=== PATIENT | male | born 1950 | race Caucasian/White ===

== ENCOUNTER 2016-08-18 14:53 | Emergency (ER) | payer OTHER, MEDICARE ==
[~2016-08-18] VITALS: Ht 170.2 cm; Wt 91.8 kg
[~2016-08-18 14:53] MED LIST: AMLO2.5T PO; ASPI81 PO; CLOP75 PO; METO50TA11 PO; NITR.4 SL; OMEP20TA PO; PRAV40TA2 PO; TYLE3 PO
[2016-08-18 15:16] VITALS: BP 122/70; PULSE 75; RESP 16; TEMP 99.1; O2SAT 96
[2016-08-18 15:30] VITALS: BP 138/63; PULSE 68; RESP 14; O2SAT 97
[2016-08-18] MEDS ORDERED: PRAV80TA2 PO (15:37)
[2016-08-18] MEDS ORDERED: LOSA25TA PO (15:37)
[2016-08-18] MEDS ORDERED: AZIT250T3 PO (15:37)
[2016-08-18] MEDS ORDERED: OMEP20TA PO (15:37)
[2016-08-18] MEDS ORDERED: ASPI1TAB69 PO (15:37)
[2016-08-18] MEDS ORDERED: METO50TA PO (15:37)
[2016-08-18] MEDS ORDERED: PLAV75TA29 PO (15:37)
[2016-08-18 16:06] VITALS: O2SAT 97
--- NOTE | 2016-08-18 16:11 | PD ---
HPI Chief Complaint: Dizziness Time Seen by Provider: 15:56 Travel History International Travel<30 days: No Contact w/Intl Traveler<30days: No Traveled to known affect area: No History of Present Illness HPI 66 years old male complains of headache, coughing congestion, shortness of breath, fever chills, dizziness and generalized malaise and weakness. Patient states that the symptoms started 10 days ago and got progressively worse since then. Patient has sick contact recently. Patient denies any dysuria or frequency. Patient denies any back pain. Patient states that headache mild aching headache diffuse over the head. Patient denies any visual change. Patient denies any neck pain. Patient states that he had chest wall pain occasionally with coughing. Patient denies abdominal pain. PFSH Past Medical History Hx Anticoagulant Therapy: Yes Arthritis: Yes Blood Disorders: No Heart Rhythm Problems: No Cancer: No Cardiac Catheterization: Yes (X 3) Cardiovascular Problems: Yes (htn on meds, stents, 5 vessel bypass) High Cholesterol: Yes Chemotherapy: No Chest Pain: Yes Congestive Heart Failure: No COPD: No Coronary Artery Disease: Yes Diabetes: No Diminished Hearing: No Endocrine: No Gastrointestinal Disorders: No Genitourinary: No Hypertension: Yes Immune Disorder: No Musculoskeletal: Yes (CARPAL TUNNEL, SHOULDER,RIGHT KNEE SURGERY) Neurologic: No Psychiatric: No Reproductive: No Respiratory: Yes (h/o bronchitis) Immunizations Current: Yes Myocardial Infarction: No Thyroid Disease: No Tetanus Vaccination: > 5 Years Influenza Vaccination: Yes Past Surgical History Cardiac Surgery: Yes (BYPASS 2001 ,3 CARDIAC CATHS) Coronary Artery Bypass Graft: Yes (5 vessel) Other Surgery: Yes Social History Alcohol Use: No Tobacco Use: No Substance Use: No Allergies-Medications (Allergen,Severity, Reaction): Coded Allergies: Codeine (Verified Allergy, Severe, 08/18/16) STATES IS NO ALLERGY AT THIS TIME Reported Meds & Prescriptions Reported Meds & Active Scripts Active Reported Azithromycin 250 Mg Tab 250 Mg PO DIRECTED Take 2 tabs (500 mg) on day 1 then 1 tab daily x 4 days. Aspirin 81 Mg Tabdr 81 Mg PO DAILY Pravastatin 80 Mg Tab 80 Mg PO DAILY Omeprazole 20 Mg Tab 20 Mg PO BID Metoprolol Tartrate 50 Mg Tab 50 Mg PO BID Losartan (Losartan Potassium) 25 Mg Tab 12.5 Mg PO DAILY Plavix (Clopidogrel Bisulfate) 75 Mg Tab 75 Mg PO DAILY Review of Systems General / Constitutional: No: Fever Eyes: No: Visual changes HENT: Positive: Headaches Cardiovascular: No: Chest Pain or Discomfort Respiratory: Positive: Cough, Shortness of Breath Gastrointestinal: No: Abdominal Pain Genitourinary: No: Dysuria Musculoskeletal: No: Pain Skin: No Rash Neurologic: No: Weakness Psychiatric: No: Depression Endocrine: No: Polydipsia Hematologic/Lymphatic: No: Easy Bruising Physical Exam Narrative GENERAL: Well-nourished, well-developed patient. SKIN: Warm and dry. HEAD: Normocephalic. EYES: No scleral icterus. No injection or drainage. Throat: Mild erythematous. NECK: Supple, trachea midline. No JVD or lymphadenopathy. No meningismus CARDIOVASCULAR: Regular rate and rhythm without murmurs, gallops, or rubs. RESPIRATORY: Breath sounds equal bilaterally. No accessory muscle use. GASTROINTESTINAL: Abdomen soft, non-tender, nondistended. MUSCULOSKELETAL: No cyanosis, or edema. BACK: Nontender without obvious deformity. No CVA tenderness. Neurologic exam normal. Data Data Last Documented VS Vital Signs Date Time Temp Pulse Resp B/P Pulse Ox O2 Delivery O2 Flow Rate FiO2 08/18/16 17:25 55 18 138/63 95 Room Air 08/18/16 15:16 99.1 Orders Complete Blood Count With Diff (08/18/16 16:03) Comprehensive Metabolic Panel (08/18/16 16:03) Blood Culture (08/18/16 16:03) Urinalysis - C+S If Indicated (08/18/16 16:03) Influenzae A/B Antigen (08/18/16 16:03) Chest, Single Ap (08/18/16 16:03) Iv Access Insert/Monitor (08/18/16 16:03) Ecg Monitoring (08/18/16 16:03) Oximetry (08/18/16 16:03) Sodium Chlor 0.9% 1000 Ml Inj (Ns 1000 M (08/18/16 17:00) Ondansetron Inj (Zofran Inj) (08/18/16 17:00) Azithromycin (Zithromax) (08/19/16 09:00) Labs Laboratory Tests Test 08/18/16 08/18/16 16:10 17:12 White Blood Count 8.7 TH/MM3 Red Blood Count 4.64 MIL/MM3 Hemoglobin 12.9 GM/DL Hematocrit 39.1 % Mean Corpuscular Volume 84.2 FL Mean Corpuscular Hemoglobin 27.9 PG Mean Corpuscular Hemoglobin 33.1 % Concent Red Cell Distribution Width 14.3 % Platelet Count 200 TH/MM3 Mean Platelet Volume 7.3 FL Neutrophils (%) (Auto) 65.1 % Lymphocytes (%) (Auto) 20.6 % Monocytes (%) (Auto) 10.6 % Eosinophils (%) (Auto) 2.9 % Basophils (%) (Auto) 0.8 % Neutrophils # (Auto) 5.6 TH/MM3 Lymphocytes # (Auto) 1.8 TH/MM3 Monocytes # (Auto) 0.9 TH/MM3 Eosinophils # (Auto) 0.3 TH/MM3 Basophils # (Auto) 0.1 TH/MM3 CBC Comment DIFF FINAL Differential Comment Sodium Level 144 MEQ/L Potassium Level 3.7 MEQ/L Chloride Level 108 MEQ/L Carbon Dioxide Level 26.7 MEQ/L Anion Gap 9 MEQ/L Blood Urea Nitrogen 12 MG/DL Creatinine 1.40 MG/DL Estimat Glomerular Filtration 51 ML/MIN Rate Random Glucose 99 MG/DL Calcium Level 8.7 MG/DL Total Bilirubin 0.4 MG/DL Aspartate Amino Transf 27 U/L (AST/SGOT) Alanine Aminotransferase 40 U/L (ALT/SGPT) Alkaline Phosphatase 76 U/L Total Protein 7.1 GM/DL Albumin 3.1 GM/DL Urine Collection Type CLEAN CATCH Urine Color YELLOW Urine Turbidity CLEAR Urine pH 5.5 Urine Specific Bryson 1.033 Urine Protein TRACE mg/dL Urine Glucose (UA) NEG mg/dL Urine Ketones TRACE mg/dL Urine Occult Blood NEG Urine Nitrite NEG Urine Bilirubin NEG Urine Leukocyte Esterase NEG Urine Squamous Epithelial 0-5 /hpf Cells Urine Amorphous Sediment FEW Microscopic Urinalysis Comment CULT NOT INDICATED Urine Collection Time 1712 MDM Medical Decision Making Medical Screen Exam Complete: Yes Emergency Medical Condition: Yes Differential Diagnosis Differential diagnosis including viral syndrome, bronchitis, pneumonia, dehydration, electrolyte imbalance, sepsis. Narrative Course 66 years old male with headache fever chills coughing congestion dizziness shortness of breath and generalized malaise and weakness. Normal saline solution 1 L IV bolus. Zofran 4 mg IV. Zithromax 500 mg by mouth given. Diagnosis Primary Impression: Bronchitis Additional Impression: Viral syndrome Patient Instructions: General Instructions Additional Instructions: Uli-Keaton tyson directed. Tylenol or Motrin for aching pain, headache. Encouraged by mouth fluid. Follow-up with personal physician. Return if persistent problem or worse. Med/Other Pt SpecificInfo: Prescription(s) given Scripts Azithromycin (Zithromax Z-Keaton)250 Mg Toca275 Mg PO DIRECTED #1 DSPK 500 MG (2 tabs) day 1, then 1 tab days 2-5. Prov:Sahil Ramirez MD 08/18/16 Disposition: 01 DISCHARGE HOME Condition: Stable Sahil Ramirez MD Aug 18, 2016 16:11
[2016-08-18 16:27] LABS: AUTOMATED NEUTROPHIL # 5.6 TH/MM3 (1.8-7.7); BASOPHIL # 0.1 TH/MM3 (0-0.2); BASOPHIL % 0.8 % (0.0-2.0); EOSINOPHIL # 0.3 TH/MM3 (0-0.4); EOSINOPHIL % 2.9 % (0.0-4.0); HEMATOCRIT 39.1 % (39.0-51.0); HEMO FLAGS DIFF FINAL; LYMPH % 20.6 % (9.0-44.0); LYMPHOCYTE # 1.8 TH/MM3 (1.0-4.8); MEAN CELL VOLUME 84.2 FL (80.0-100.0); MEAN CORPUSCULAR HEMOGLOBIN 27.9 PG (27.0-34.0); MEAN CORPUSCULAR HGB CONC 33.1 % (32.0-36.0); MONO % 10.6 % (0.0-8.0); NEUT % 65.1 % (16.0-70.0); PLATELET COUNT 200 TH/MM3 (150-450); RED BLOOD COUNT 4.64 MIL/MM3 (4.50-5.90); RED CELL DISTRIBUTION WIDTH 14.3 % (11.6-17.2); WHITE BLOOD COUNT 8.7 TH/MM3 (4.0-11.0)
[2016-08-18 16:36] LABS: CHLORIDE 108 MEQ/L (98-107); POTASSIUM 3.7 MEQ/L (3.5-5.1); SODIUM (NA) 144 MEQ/L (136-145)
[2016-08-18 16:40] LABS: ANION GAP 9 MEQ/L (5-15); BICARBONATE 26.7 MEQ/L (21.0-32.0); BLOOD UREA NITROGEN 12 MG/DL (7-18)
--- NOTE | 2016-08-18 16:42 | RADHPO ---
EXAM DATE/TIME: 08/18/2016 16:25 [facility] COMPARISON: CHEST SINGLE AP, October 08, 2015, 15:25. INDICATIONS : Short of breath, cough, fever MEDICAL HISTORY : Cardiovascular disease. SURGICAL HISTORY : CABG. ENCOUNTER: Initial ACUITY: 1 week PAIN SCORE: 0/10 LOCATION: Bilateral chest FINDINGS: A single view of the chest demonstrates the lungs to be symmetrically aerated without evidence of mas s, infiltrate or effusion. The cardiomediastinal contours are unremarkable. Osseous structures are intact. The patient is status post median sternotomy for bypass grafting procedure. There are overlyi ng electrocardiogram leads. CONCLUSION: No acute disease. There is no evidence of pneumonia on this single view study. Kayode Francis MD on August 18, 2016 at 16:40 Board Certified Radiologist. This report was verified electronically.
[2016-08-18 16:43] LABS: ALT (GPT) 40 U/L (12-78); AST (GOT) 27 U/L (15-37); GLOMERULAR FILTRATION RATE 51 ML/MIN (>89)
[2016-08-18 16:44] LABS: TOTAL BILIRUBIN ADULT 0.4 MG/DL (0.2-1.0)
[2016-08-18 16:46] LABS: ALKALINE PHOSPHATASE 76 U/L (45-117)
[2016-08-18] MEDS ORDERED: ONDANSETRON HCL 4 MG/2 ML VIAL IV PUSH ONE (17:00)
[2016-08-18] MEDS ORDERED: SODIUM CHLOR 0.9% 1000 ML INJ 1,000 ML IV ONE (17:00)
[2016-08-18 17:25] VITALS: BP 138/63; PULSE 55; RESP 18; O2SAT 95
[2016-08-18 17:27] LABS: BLOOD, URINE NEG (NEG); GLUCOSE,URINE NEG (NEG); KETONE, URINE TRACE mg/dL (NEG); NITRITE,URINE NEG (NEG); PH, URINE 5.5 (5.0-8.5)
[2016-08-18 17:29] LABS: METHOD OF COLLECTION CLEAN CATCH; URINE COLOR YELLOW (YELLW/STRAW)
[2016-08-18 17:34] LABS: COMMENT (UR) CULT NOT INDICATED; COMMENT2 (UR) MUCOUS PRESENT; CULTURE IF INDICATED CULT NOT INDICATED; SQUAMOUS EPITHELIAL CELL URINE 0-5 /hpf (0-5)
[2016-08-18] MEDS ORDERED: ZITHTAB PO (17:44)
[2016-08-18] MEDS ORDERED: AZITHROMYCIN 250 MG TAB PO ONE (18:00)
[2016-08-19] MEDS ORDERED: AZITHROMYCIN 250 MG TAB PO SCH (09:00)
--- NOTE | 2016-08-19 15:01 | EKG ---
Date Performed: 08/18/2016 Time Performed: 15:26:38 PTAGE: 66 years EKG: Sinus rhythm Normal ECG PREVIOUS TRACING : 10/10/2015 03.13 Compared to prior tracing no significant change DOCTOR: Stanley Irwin Interpretating Date/Time 08/19/2016 14:59:22
== END 2016-08-18 18:03 | disposition home or self-care (01) ==
LOC: PHED 14:53
DX: J40 Bronchitis, not specified as acute or chronic (principal); B34.9 Viral infection, unspecified; R51 Headache; R50.9 Fever, unspecified; R42 Dizziness and giddiness; R53.81 Other malaise; R53.1 Weakness; I10 Essential (primary) hypertension; E78.00 Pure hypercholesterolemia, unspecified; Z79.01 Long term (current) use of anticoagulants; Z87.39 Personal history of other diseases of the musculoskeletal system and connective tissue; Z86.79 Personal history of other diseases of the circulatory system; Z87.09 Personal history of other diseases of the respiratory system
CPT/HCPCS: 71010; 80053; 81001; 85025; 87040; 87804; 93005; 96361; 96374; 99284; J2405; J7030

== ENCOUNTER 2016-08-26 09:02 | Emergency (ER) | payer OTHER, MEDICARE ==
[~2016-08-26] VITALS: Ht 170.2 cm; Wt 90.1 kg
[~2016-08-26 09:02] MED LIST changes: -AMLO2.5T PO; +ASPI1TAB69 PO; -ASPI81 PO; +AZIT250T3 PO; -CLOP75 PO; +LOSA25TA PO; +METO50TA PO; -METO50TA11 PO; -NITR.4 SL; +PLAV75TA29 PO; -PRAV40TA2 PO; +PRAV80TA2 PO; -TYLE3 PO; +ZITHTAB PO
[2016-08-26 09:06] VITALS: BP 148/82; PULSE 59; RESP 17; TEMP 97.9; O2SAT 97
--- NOTE | 2016-08-26 09:29 | PD ---
HPI Chief Complaint: Cold / Flu Symptoms Time Seen by Provider: 09:11 Travel History International Travel<30 days: No Contact w/Intl Traveler<30days: No Traveled to known affect area: No History of Present Illness HPI Patient is 66-year-old male presents emergency department for his third evaluation in the past 2 weeks for cough and congestion and shortness of breath. Patient states he's been seen here diagnosed with bronchitis and was placed on antibiotics, he went to the [place] as well was placed on the same course of antibiotics and discharged both times the diagnosis of bronchitis. Patient states he still continues to not feel well shortness of breath with some modest exertion. Also with a dry cough denies any fevers. States she's had 2 chest x- rays and this time as well as some blood work. Denies history of stasis a history of blood clots in his legs or in his chest. Denies any orthopnea symptoms. PFSH Past Medical History Hx Anticoagulant Therapy: Yes Arthritis: Yes Blood Disorders: No Heart Rhythm Problems: No Cancer: No Cardiac Catheterization: Yes (X 3) Cardiovascular Problems: Yes (htn on meds, stents, 5 vessel bypass) High Cholesterol: Yes Chemotherapy: No Chest Pain: Yes Congestive Heart Failure: No COPD: No Coronary Artery Disease: Yes Diabetes: No Diminished Hearing: No Endocrine: No Gastrointestinal Disorders: No Genitourinary: No Hypertension: Yes Immune Disorder: No Musculoskeletal: Yes (CARPAL TUNNEL, SHOULDER,RIGHT KNEE SURGERY) Neurologic: No Psychiatric: No Reproductive: No Respiratory: Yes (h/o bronchitis) Immunizations Current: Yes Myocardial Infarction: No Thyroid Disease: No Tetanus Vaccination: > 5 Years Influenza Vaccination: Yes Past Surgical History Cardiac Surgery: Yes (BYPASS 2001 ,3 CARDIAC CATHS) Coronary Artery Bypass Graft: Yes (5 vessel) Other Surgery: Yes Social History Alcohol Use: No Tobacco Use: No Substance Use: No Allergies-Medications (Allergen,Severity, Reaction): Coded Allergies: Codeine (Verified Allergy, Severe, 08/26/16) STATES IS NO ALLERGY AT THIS TIME Reported Meds & Prescriptions Reported Meds & Active Scripts Active Reported Aspirin 81 Mg Tabdr 81 Mg PO DAILY Pravastatin 80 Mg Tab 80 Mg PO DAILY Omeprazole 20 Mg Tab 20 Mg PO BID Metoprolol Tartrate 50 Mg Tab 50 Mg PO BID Losartan (Losartan Potassium) 25 Mg Tab 12.5 Mg PO DAILY Plavix (Clopidogrel Bisulfate) 75 Mg Tab 75 Mg PO DAILY Review of Systems Except as stated in HPI: all other systems reviewed are Neg Physical Exam Narrative GENERAL: Well-developed well-nourished, was seen by me emulating to the exam room in no apparent distress and smiling. SKIN: Focused skin assessment warm/dry. HEAD: Atraumatic. Normocephalic. EYES: Pupils equal and round. No scleral icterus. No injection or drainage. ENT: No nasal bleeding or discharge. Mucous membranes pink and moist. NECK: Trachea midline. No JVD. CARDIOVASCULAR: Regular rate and rhythm. No murmur appreciated. RESPIRATORY: No accessory muscle use. Clear to auscultation. Breath sounds equal bilaterally. GASTROINTESTINAL: Abdomen soft, non-tender, nondistended. Hepatic and splenic margins not palpable. MUSCULOSKELETAL: No obvious deformities. No clubbing. No cyanosis. No edema. NEUROLOGICAL: Awake and alert. No obvious cranial nerve deficits. Motor grossly within normal limits. Normal speech. PSYCHIATRIC: Appropriate mood and affect; insight and judgment normal. Data Data Last Documented VS Vital Signs Date Time Temp Pulse Resp B/P Pulse Ox O2 Delivery O2 Flow Rate FiO2 08/26/16 12:17 61 16 141/78 97 08/26/16 11:20 Room Air 08/26/16 09:06 97.9 Orders Electrocardiogram (08/26/16 09:29) Complete Blood Count With Diff (08/26/16 09:29) Comprehensive Metabolic Panel (08/26/16 09:29) D-Dimer (08/26/16 09:29) Prothrombin Time / Inr (Pt) (08/26/16 09:29) Act Partial Throm Time (Ptt) (08/26/16 09:29) Troponin I (08/26/16 09:29) Ecg Monitoring (08/26/16 09:29) Iv Access Insert/Monitor (08/26/16 09:29) Oximetry (08/26/16 09:29) Sodium Chloride 0.9% Flush (Ns Flush) (08/26/16 09:30) Ct Pulmonary Angiogram (08/26/16 ) Iohexol 350 Inj (Omnipaque 350 Inj) (08/26/16 11:23) Labs Laboratory Tests Test 08/26/16 09:50 White Blood Count 6.5 TH/MM3 Red Blood Count 4.71 MIL/MM3 Hemoglobin 13.3 GM/DL Hematocrit 39.8 % Mean Corpuscular Volume 84.5 FL Mean Corpuscular Hemoglobin 28.1 PG Mean Corpuscular Hemoglobin 33.3 % Concent Red Cell Distribution Width 14.1 % Platelet Count 232 TH/MM3 Mean Platelet Volume 7.2 FL Neutrophils (%) (Auto) 52.5 % Lymphocytes (%) (Auto) 32.2 % Monocytes (%) (Auto) 9.6 % Eosinophils (%) (Auto) 4.5 % Basophils (%) (Auto) 1.2 % Neutrophils # (Auto) 3.4 TH/MM3 Lymphocytes # (Auto) 2.1 TH/MM3 Monocytes # (Auto) 0.6 TH/MM3 Eosinophils # (Auto) 0.3 TH/MM3 Basophils # (Auto) 0.1 TH/MM3 CBC Comment DIFF FINAL Differential Comment Prothrombin Time 11.1 SEC Prothromb Time International 1.0 RATIO Ratio Activated Partial 26.5 SEC Thromboplast Time D-Dimer Quantitative (PE/DVT) 0.70 MG/L FEU Sodium Level 146 MEQ/L Potassium Level 3.9 MEQ/L Chloride Level 111 MEQ/L Carbon Dioxide Level 26.1 MEQ/L Anion Gap 9 MEQ/L Blood Urea Nitrogen 18 MG/DL Creatinine 1.40 MG/DL Estimat Glomerular Filtration 51 ML/MIN Rate Random Glucose 89 MG/DL Calcium Level 9.2 MG/DL Total Bilirubin 0.4 MG/DL Aspartate Amino Transf 16 U/L (AST/SGOT) Alanine Aminotransferase 25 U/L (ALT/SGPT) Alkaline Phosphatase 62 U/L Troponin I LESS THAN 0.02 NG/ML Total Protein 7.2 GM/DL Albumin 3.4 GM/DL [facility] Medical Decision Making Medical Screen Exam Complete: Yes Emergency Medical Condition: Yes Interpretation(s) EKG shows sinus bradycardia rate of 56, normal axis and normal R-wave progression. No concerning ST-T changes. Intervals otherwise within normal limits. This is normal EKG except for rate. Comparison to 08/18/2016 shows no change comparison to 10/10/2015 shows no change. Differential Diagnosis PE seems unlikely, ACS is highly unlikely, shortness of breath, CHF, bronchitis , pneumonia. Narrative Course Patient is roomed in emergency department, on arrival he is walking in the hallway smiling in no apparent distress. He appears well. Initial workup was significant for minimally elevated d-dimer to 0.7. CTA is negative. Creatinine is 1.4 which appears to be patient's baseline. Last [address] Angiography 08/26/16 0000 Signed Impressions: Service Date/Time: Friday, August 26, 2016 11:08 - CONCLUSION: 1. There is no evidence for central pulmonary emboli. 2. Extensive coronary artery calcifications with history of previous bypass. 3. Very minimal fissural thickening Ernesto Hadley MD FACR No indication for antibiotics at this time. Discussed with the patient at this point needs follow-up with his primary care physician and consideration of pulmonary function testing. Discussed symptomatically management home and return to ED criteria. He is stable for discharge. Diagnosis Primary Impression: Bronchitis Disposition: 01 DISCHARGE HOME Condition: Stable Marquis Santillan MD Aug 26, 2016 09:29
[2016-08-26] MEDS ORDERED: SODIUM CHLORIDE 0.9% FLUSH 10 ML FLUSH IVF PRN (09:30)
[2016-08-26 09:33] VITALS: RESP 16; O2SAT 100
[2016-08-26 09:59] LABS: AUTOMATED NEUTROPHIL # 3.4 TH/MM3 (1.8-7.7); BASOPHIL # 0.1 TH/MM3 (0-0.2); BASOPHIL % 1.2 % (0.0-2.0); EOSINOPHIL # 0.3 TH/MM3 (0-0.4); EOSINOPHIL % 4.5 % (0.0-4.0); HEMATOCRIT 39.8 % (39.0-51.0); HEMO FLAGS DIFF FINAL; LYMPH % 32.2 % (9.0-44.0); LYMPHOCYTE # 2.1 TH/MM3 (1.0-4.8); MEAN CELL VOLUME 84.5 FL (80.0-100.0); MEAN CORPUSCULAR HEMOGLOBIN 28.1 PG (27.0-34.0); MEAN CORPUSCULAR HGB CONC 33.3 % (32.0-36.0); MONO % 9.6 % (0.0-8.0); NEUT % 52.5 % (16.0-70.0); PLATELET COUNT 232 TH/MM3 (150-450); RED BLOOD COUNT 4.71 MIL/MM3 (4.50-5.90); RED CELL DISTRIBUTION WIDTH 14.1 % (11.6-17.2); WHITE BLOOD COUNT 6.5 TH/MM3 (4.0-11.0)
[2016-08-26 10:00] VITALS: BP 149/84; PULSE 60; RESP 16; O2SAT 97
[2016-08-26 10:07] LABS: CHLORIDE 111 MEQ/L (98-107); POTASSIUM 3.9 MEQ/L (3.5-5.1); SODIUM (NA) 146 MEQ/L (136-145)
[2016-08-26 10:10] LABS: ANION GAP 9 MEQ/L (5-15); BICARBONATE 26.1 MEQ/L (21.0-32.0); BLOOD UREA NITROGEN 18 MG/DL (7-18)
[2016-08-26 10:13] LABS: ALT (GPT) 25 U/L (12-78); AST (GOT) 16 U/L (15-37)
[2016-08-26 10:14] LABS: GLOMERULAR FILTRATION RATE 51 ML/MIN (>89)
[2016-08-26 10:15] LABS: TOTAL BILIRUBIN ADULT 0.4 MG/DL (0.2-1.0)
[2016-08-26 10:16] LABS: ALKALINE PHOSPHATASE 62 U/L (45-117)
[2016-08-26 10:17] LABS: APTT (PATIENT) 26.5 SEC (24.3-30.1); PROTHROMBIN TIME - PATIENT 11.1 SEC (9.8-11.6)
[2016-08-26] MEDS ORDERED: IOHEXOL 350 MG/ML 10 ML VIAL (for RAD DIAG) IV ONE (11:23)
--- NOTE | 2016-08-26 11:42 | RADHPO ---
EXAM DATE/TIME: 08/26/2016 11:08 [facility] COMPARISON: CT PULMONARY ANGIOGRAM, September 14, 2014, 6:27. INDICATIONS : Short of breath and cought for two weeks with no improvement. IV CONTRAST: 65 cc Omnipaque 350 (iohexol) IV RADIATION DOSE: 19.00 CTDIvol (mGy) MEDICAL HISTORY : Hypertension. Cardiovascular disease Anticoagulant therapy. SURGICAL HISTORY : CABG ENCOUNTER: Initial ACUITY: 2 weeks PAIN SCALE: 0/10 LOCATION: Bilateral chest TECHNIQUE: Volumetric scanning of the chest was performed using a pulmonary embolism protocol MIP images were re constructed. Using automated exposure control and adjustment of the mA and/or kV according to patien t size, radiation dose was kept as low as reasonably achievable to obtain optimal diagnostic quality images. FINDINGS: There is good visualization of the central pulmonary vessels. There is no evidence for central pulmo nary emboli. Very minimal bibasilar parenchymal changes are noted with minimal thickening about the fissure on the right. The heart is enlarged. There is no pericardial effusion. Extensive coronary artery calcifications a re seen in the LAD and the circumflex. Portion of liver and spleen identified are free of focal defects. CONCLUSION: 1. There is no evidence for central pulmonary emboli. 2. Extensive coronary artery calcifications with history of previous bypass. 3. Very minimal fissural thickening Ernesto Hadley MD FACR on August 26, 2016 at 11:29 Board Certified Radiologist. This report was verified electronically.
[2016-08-26 12:17] VITALS: BP 141/78
--- NOTE | 2016-08-27 22:18 | EKG ---
Date Performed: 08/26/2016 Time Performed: 09:32:20 PTAGE: 66 years EKG: Sinus bradycardia Since PREVIOUS TRACING , no significant change noted Normal ECG except for rate PREVIOUS TRACIN 08/18/2016 15.26 DOCTOR: Katey Griggs Interpretating Date/Time 08/27/2016 22:16:21
== END 2016-08-26 12:36 | disposition home or self-care (01) ==
LOC: PHED 09:02
DX: J40 Bronchitis, not specified as acute or chronic (principal)
CPT/HCPCS: 71275; 80053; 84484; 85025; 85379; 85610; 85730; 93005; 99284; Q9967

== ENCOUNTER 2017-01-23 15:21 | Emergency (ER) | payer OTHER, MEDICARE ==
[~2017-01-23] VITALS: Ht 170.2 cm; Wt 92.8 kg
[~2017-01-23 15:21] MED LIST changes: -AZIT250T3 PO; -ZITHTAB PO
[2017-01-23 16:02] VITALS: BP 98/56; PULSE 67; RESP 16; TEMP 100.1
[2017-01-23] MEDS ORDERED: ASPI81CH CHEW (16:23)
[2017-01-23] MEDS ORDERED: NITR1SUB3 SL (16:23)
[2017-01-23 16:24] VITALS: O2SAT 94
--- NOTE | 2017-01-23 16:24 | PD ---
HPI . Left arm pain and dyspnea Chief Complaint: Pain: Acute or Chronic Time Seen by Provider: 16:12 Travel History International Travel<30 days: No Contact w/Intl Traveler<30days: No Traveled to known affect area: No History of Present Illness HPI This patient is status post release of his left carpal tunnel on 01/21. He states that he awakened early this morning by increased pain in his arm. The pain has been unrelieved by tramadol. He is also complaining with dyspnea. He denies chest pain. He rates his pain 10/10. PFSH Past Medical History Hx Anticoagulant Therapy: Yes (plavix) Arthritis: Yes Blood Disorders: No Heart Rhythm Problems: No Cancer: No Cardiac Catheterization: Yes (X 3) Cardiovascular Problems: Yes (htn on meds, 5 vessel bypass) High Cholesterol: Yes Chemotherapy: No Chest Pain: Yes Congestive Heart Failure: No COPD: No Coronary Artery Disease: Yes Diabetes: No Diminished Hearing: No Endocrine: No Gastrointestinal Disorders: No Genitourinary: No Hypertension: Yes Immune Disorder: No Musculoskeletal: Yes (CARPAL TUNNEL, SHOULDER,RIGHT KNEE SURGERY) Neurologic: No Psychiatric: No Reproductive: No Respiratory: Yes (h/o bronchitis) Immunizations Current: Yes Myocardial Infarction: No Thyroid Disease: No Past Surgical History Cardiac Surgery: Yes (BYPASS 2001 ,3 CARDIAC CATHS) Coronary Artery Bypass Graft: Yes (5 vessel) Other Surgery: Yes Social History Alcohol Use: No Tobacco Use: No Substance Use: No Allergies-Medications (Allergen,Severity, Reaction): Coded Allergies: codeine (Unverified Allergy, Severe, 01/23/17) STATES IS NO ALLERGY AT THIS TIME Reported Meds & Prescriptions Reported Meds & Active Scripts Active Reported Aspirin 81 Mg Chew 81 Mg CHEW DAILY Nitroglycerin SL (Nitroglycerin) 0.4 Mg Subl 0.4 Mg SL DIRECTED PRN ONE TABLET UNDER THE TONGUE NEEDED FOR CHEST PAIN, MAY REPEAT EVERY FIVE MINUTES FOR A TOTAL OF 3 DOSES OR CALL 911 IF NO RELIEF Pravastatin 80 Mg Tab 80 Mg PO DAILY Omeprazole 20 Mg Tab 20 Mg PO BID Metoprolol Tartrate 50 Mg Tab 50 Mg PO BID Losartan (Losartan Potassium) 25 Mg Tab 12.5 Mg PO DAILY Plavix (Clopidogrel Bisulfate) 75 Mg Tab 75 Mg PO DAILY Review of Systems Except as stated in HPI: all other systems reviewed are Neg General / Constitutional: No: Fever, Chills Cardiovascular: No: Chest Pain or Discomfort Respiratory: Positive: Shortness of Breath Musculoskeletal: Positive: Myalgias Physical Exam Narrative GENERAL: Patient is awake and alert. He does look like he is in some pain. SKIN: Warm and dry. HEAD: Atraumatic. Normocephalic. EYES: Pupils equal and round. Extraocular movements are intact. ENT: No nasal bleeding or discharge. Mucous membranes pink and moist. NECK: Trachea midline. Neck is supple. CARDIOVASCULAR: Regular rate and rhythm. RESPIRATORY: No accessory muscle use. Lungs sound clear. GASTROINTESTINAL: Abdomen soft, non-tender, nondistended. MUSCULOSKELETAL: No obvious deformities. Splint on his left wrist and forearm. Fingers are pink with a normal skin temperature and good capillary refill. They are swollen. NEUROLOGICAL: Awake and alert. No obvious cranial nerve deficits. Motor grossly within normal limits. Normal speech. PSYCHIATRIC: Appropriate mood and affect; insight and judgment normal. Data Data Last Documented VS Vital Signs Date Time Temp Pulse Resp B/P (MAP) Pulse Ox O2 Delivery O2 Flow Rate FiO2 01/23/17 17:03 60 116/61 (79) 92 01/23/17 16:02 100.1 16 Orders Orders Complete Blood Count With Diff (01/23/17 16:17) Basic Metabolic Panel (Bmp) (01/23/17 16:17) Iv Access Insert/Monitor (01/23/17 16:17) Ecg Monitoring (01/23/17 16:17) Oximetry (01/23/17 16:17) Oxygen Administration (01/23/17 16:17) Ct Pulmonary Angiogram (01/23/17 16:17) Sodium Chloride 0.9% Flush (Ns Flush) (01/23/17 16:30) Morphine Inj (Morphine Inj) (01/23/17 16:30) Ondansetron Inj (Zofran Inj) (01/23/17 16:30) Iohexol 350 Inj (Omnipaque 350 Inj) (01/23/17 17:45) Labs Laboratory Tests Test 01/23/17 16:54 White Blood Count 9.7 TH/MM3 Red Blood Count 4.56 MIL/MM3 Hemoglobin 12.8 GM/DL Hematocrit 38.9 % Mean Corpuscular Volume 85.2 FL Mean Corpuscular Hemoglobin 28.1 PG Mean Corpuscular Hemoglobin Concent 32.9 % Red Cell Distribution Width 13.1 % Platelet Count 218 TH/MM3 Mean Platelet Volume 7.8 FL Neutrophils (%) (Auto) 75.9 % Lymphocytes (%) (Auto) 11.2 % Monocytes (%) (Auto) 11.0 % Eosinophils (%) (Auto) 1.6 % Basophils (%) (Auto) 0.3 % Neutrophils # (Auto) 7.3 TH/MM3 Lymphocytes # (Auto) 1.1 TH/MM3 Monocytes # (Auto) 1.1 TH/MM3 Eosinophils # (Auto) 0.2 TH/MM3 Basophils # (Auto) 0.0 TH/MM3 CBC Comment DIFF FINAL Differential Comment Blood Urea Nitrogen 18 MG/DL Creatinine 1.50 MG/DL Random Glucose 93 MG/DL Calcium Level 8.9 MG/DL Sodium Level 135 MEQ/L Potassium Level 4.3 MEQ/L Chloride Level 101 MEQ/L Carbon Dioxide Level 26.7 MEQ/L Anion Gap 7 MEQ/L Estimat Glomerular Filtration Rate 47 ML/MIN MDM Medical Decision Making Medical Screen Exam Complete: Yes Emergency Medical Condition: Yes Differential Diagnosis Differential diagnosis of dyspnea includes but is not limited to congestive heart failure, pneumonia, wheezing, pneumothorax, pulmonary embolism Differential diagnosis of arm pain includes but is not limited to normal postoperative pain, wound infection/cellulitis, compartment syndrome, tight splint Narrative Course This patient presents with 2 problems. His first problem is dyspnea. He had surgery on 01/21. CT for PE is pending. His second complaint is postoperative pain. He'll be given morphine for pain. The splint will be removed so that the area can be properly examined. The splint has been removed. The gauze dressing has been left in place. There is no drainage on the dressing. His fingerstick continued to be pink and warm. CBC & BMP Diagram 01/23/17 16:[address] shows no PE. He does have atelectasis. I have ordered an incentive spirometer. Diagnosis Primary Impression: Postoperative pain of extremity Additional Impression: Dyspnea Qualified Codes: R06.00 - Dyspnea, unspecified Patient Instructions: Arm Pain (ED), General Instructions, How to Use an Incentive Spirometer (DC), Narcotic given in the ED Additional Instructions: Contact your surgeon if the increased pain persists. Med/Other Pt SpecificInfo: Prescription(s) given Scripts Oxycodone-Acetaminophen (Percocet) 5-325 mg Tab 1 TAB PO Q4H Y for PAIN, #12 TAB 0 Refills Prov: Nereida Krueger MD 01/23/17 Disposition: 01 DISCHARGE HOME Condition: Stable Nereida Krueger MD Jan 23, 2017 16:24
[2017-01-23] MEDS ORDERED: MORPHINE SULFATE 4 MG/ML INJ IV ONE (16:30)
[2017-01-23] MEDS ORDERED: ONDANSETRON HCL 4 MG/2 ML VIAL IV PUSH ONE (16:30)
[2017-01-23] MEDS ORDERED: SODIUM CHLORIDE 0.9% FLUSH 10 ML FLUSH IVF PRN (16:30)
[2017-01-23 17:03] VITALS: BP 116/61; PULSE 60; O2SAT 92
[2017-01-23 17:20] LABS: POTASSIUM 4.3 MEQ/L (3.5-5.1)
[2017-01-23 17:23] LABS: BICARBONATE 26.7 MEQ/L (21.0-32.0)
[2017-01-23 17:25] LABS: AUTOMATED NEUTROPHIL # 7.3 TH/MM3 (1.8-7.7); BASOPHIL % 0.3 % (0.0-2.0); EOSINOPHIL # 0.2 TH/MM3 (0-0.4); EOSINOPHIL % 1.6 % (0.0-4.0); HEMATOCRIT 38.9 % (39.0-51.0); HEMO FLAGS DIFF FINAL; LYMPH % 11.2 % (9.0-44.0); LYMPHOCYTE # 1.1 TH/MM3 (1.0-4.8); MEAN CELL VOLUME 85.2 FL (80.0-100.0); MEAN CORPUSCULAR HEMOGLOBIN 28.1 PG (27.0-34.0); MEAN CORPUSCULAR HGB CONC 32.9 % (32.0-36.0); NEUT % 75.9 % (16.0-70.0); PLATELET COUNT 218 TH/MM3 (150-450); RED BLOOD COUNT 4.56 MIL/MM3 (4.50-5.90); RED CELL DISTRIBUTION WIDTH 13.1 % (11.6-17.2); WHITE BLOOD COUNT 9.7 TH/MM3 (4.0-11.0)
[2017-01-23] MEDS ORDERED: IOHEXOL 350 MG/ML 10 ML VIAL (for RAD DIAG) IVCONTRAST ONE (17:45)
--- NOTE | 2017-01-23 17:54 | RADRPT ---
EXAM DATE/TIME: 01/23/2017 17:37 [place] COMPARISON: NOUNTER: Initial ACUITY: 1 day PAIN SCALE: 0/10 LOCATION: chest TECHNIQUE: Volumetric scanning of the chest was performed using a pulmonary embolism protocol MIP images were re constructed. Using automated exposure control and adjustment of the mA and/or kV according to patien t size, radiation dose was kept as low as reasonably achievable to obtain optimal diagnostic quality images. DICOM format image data is available electronically for review and comparison. Follow-up recommendations for detected pulmonary nodules are based at a minimum on nodule size and pa tient risk factors according to Fleischner Society Guidelines. FINDINGS: There is no evidence for PE for technique. Mild right lung base atelectasis and/or infiltrate is seen . There is also slight atelectasis left lung base not present previously There is no pleural effusion . No appreciable pathological adenopathy is seen within the mediastinum. Coronary artery calcificati ons are seen typically seen with CAD and need to be evaluated clinically. CONCLUSION: Slight bibasilar atelectasis and/or infiltrate is seen. Curry Swain MD on January 23, 2017 at 17:49 Board Certified Radiologist. This report was verified electronically.
[2017-01-23 18:00] VITALS: BP 129/63; PULSE 64; RESP 16; O2SAT 91
[2017-01-23] MEDS ORDERED: PERC5TAB12 PO (18:01)
== END 2017-01-23 18:34 | disposition home or self-care (01) ==
LOC: PHED 15:21
DX: G89.18 Other acute postprocedural pain (principal); R06.00 Dyspnea, unspecified; J98.11 Atelectasis; I10 Essential (primary) hypertension; Z95.1 Presence of aortocoronary bypass graft; Z79.01 Long term (current) use of anticoagulants
CPT/HCPCS: 71275; 80048; 85025; 94150; 96374; 96375; 99285; J2270; J2405; Q9967

== ENCOUNTER 2018-05-02 03:01 | Observation (INO) ==
[2018-05-02 03:20] LABS: Baso # (Auto) 0.1 th/mm3 (0.0-0.2); Baso % (Auto) 1.1 % (0.0-2.0); Eos # (Auto) 0.3 th/mm3 (0.0-0.4); Eos % (Auto) 2.6 % (0.0-4.0); Hematocrit 36.8 % (39.0-51.0); Hemoglobin 12.3 gm/dL (13.0-17.0); Lymph # (Auto) 2.2 th/mm3 (1.0-4.8); Lymph % (Auto) 22.2 % (9.0-44.0); Mean Corpuscular HGB Conc 33.3 % (32.0-36.0); Mean Corpuscular Hemoglobin 28.3 pg (27.0-34.0); Mean Platelet Volume 7.7 fL (7.0-11.0); Mono # (Auto) 0.9 th/mm3 (0.0-0.9); Mono % (Auto) 9.2 % (0.0-8.0); Neut # (Auto) 6.5 th/mm3 (1.8-7.7); Neut % (Auto) 64.9 % (16.0-70.0); Platelet Count 191 th/mm3 (150-450); Red Blood Count 4.33 mil/mm3 (4.50-5.90); Red Cell Distribution Width 14.4 % (11.6-17.2)
--- NOTE | 2018-05-02 03:29 | XR ---
EXAM DATE: 05/02/2018 3:25 AM EST AGE/SEX: 68 years / Male INDICATIONS: Chest pain. CLINICAL DATA: This is the patient's initial encounter. Patient reports that signs and symptoms have been present for 1 day and indicates a pain score of 5/10. MEDICAL/SURGICAL HISTORY: . Cardiovascular disease. Hypertension. . CABG Coronary artery sten t. COMPARISON: [facility], CHEST 1V SINGLE AP, 12/09/2017. [facility], CHEST SINGLE AP, 08/18/2016. . FINDINGS: Portable AP view of the chest demonstrates a normal-sized cardiac silhouette in this patient post med hugh sternotomy and CABG. There is a linear opacity at the left lung base. No airspace consolidation, pleural effusion, or pneumothorax is identified. Questionable nodule overlies the right lower lung zo ne and measures approximately 9 mm. Bones and soft tissues demonstrate no acute finding. CONCLUSION: 1. No acute finding is identified to explain the chest pain. 2. Questionable 9 mm pulmonary nodule at the right lung base. This finding was not identified on the a prior chest x-rays. Suggest follow-up outpatient PA and lateral chest x-ray to evaluate for resolu tion or consider outpatient chest CT for further evaluation. Electronically signed by: David Barroso MD 05/02/2018 3:28 AM EST
[2018-05-02 03:32] LABS: Activated Partial Thrombo Time 28.8 sec (23.4-31.7); Prothrombin Time 10.3 sec (9.8-11.6)
[2018-05-02 03:35] LABS: Alanine Aminotransferase 24 U/L (12-78); Albumin 3.2 g/dL (3.4-5.0); Anion Gap 8 meq/L (5-15); Aspartate Aminotransferase 19 U/L (15-37); Blood Urea Nitrogen 13 mg/dL (7-18); Calcium 8.4 mg/dL (8.5-10.1); Carbon Dioxide 24.5 meq/L (21.0-32.0); Chloride 109 meq/L (98-107); Glomerular Filtration Rate 48 mL/min (>89); Glucose,Random 116 mg/dL (74-106); Potassium 4.1 meq/L (3.5-5.1); Sodium 141 meq/L (136-145)
[2018-05-02 03:39] LABS: Alkaline Phosphatase 91 U/L (45-117)
[2018-05-02 03:58] LABS: Creatine Kinase 96 U/L (39-308)
[2018-05-02] MEDS ORDERED: Acetaminophen 500 MG Tablet PO PRN (04:40)
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
[2018-05-02 07:38] LABS: Creatine Kinase 90 U/L (39-308)
[2018-05-02 07:46] VITALS: BP 153/70; PULSE 58; RESP 16; TEMP 97.6
[2018-05-02 08:37] VITALS: O2SAT 94
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
[2018-05-02] MEDS ORDERED: Ketorolac Inj 30 MG/ML (IVP) Vial IV.PUSH ONE (09:21)
[2018-05-02] MEDS ORDERED: Pantoprazole Sodium 20 MG DR Tablet PO SCH (09:30)
[2018-05-02] MEDS ORDERED: Metoprolol Tartrate 100 MG Tablet PO SCH (09:30)
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
[2018-05-02 10:33] LABS: Creatine Kinase 88 U/L (39-308)
--- NOTE | 2018-05-02 10:39 | ECG ---
Date Performed: 05/02/2018 Time Performed: 06:03:16 PTAGE: 68 years EKG: SINUS BRADYCARDIA BORDERLINE ECG No significant change PREVIOUS TRACING : 12/09/2017 11.06 DOCTOR: Kyler Renae Interpretating Date/Time 05/02/2018 10:38:48
--- NOTE | 2018-05-02 10:40 | ECG ---
Date Performed: 05/02/2018 Time Performed: 03:10:57 PTAGE: 68 years EKG: Sinus rhythm NORMAL ECG NO PREVIOUS TRACING DOCTOR: Kyler Renae Interpretating Date/Time 05/02/2018 10:39:15
[2018-05-02] MEDS ORDERED: Regadenoson Inj 0.4 MG/5 ML Syringe IV.PUSH ONE (11:21)
--- NOTE | 2018-05-02 12:32 | NM ---
EXAM DATE: 05/02/2018 12:20 PM EST AGE/SEX: 68 years / Male INDICATIONS:Angina. . Chest pain. CLINICAL DATA: This is the patient's initial encounter. Patient reports that signs and symptoms have been present for 1 day and indicates a pain score of 4/10. MEDICAL/SURGICAL HISTORY: Hypertension. Hypercholesterolemia. Coronary artery disease. Florian ry artery stent. CABG x5 vessels, shoulder surgery. COMPARISON: [facility] [place], MYOCARDIAL PERF PHARM SPECT, 10/10/2015. . DOSE: 8.8 mCi Tc 99m Myoview at rest 27.5 mCi [id number] at stress 0.4 mg Lexiscan STRESS SYMPTOMS: Headache and lightheadedness. EJECTION FRACTION: 70 % TECHNIQUE: The patient underwent pharmacologic stress with infusion of prescribed dose. Continuous ECG tracing was monitored during stress. Gated SPECT imaging was performed after stress and conventi onal SPECT imaging was performed at rest. The examination was performed on a SPECT/CT scanner, both attenuation and non-corrected datasets were reviewed. FINDINGS: Distribution: The maximum perfused segment at stress is in the septal wall. Perfusion Study: The pattern of perfusion at stress is within normal limits. Gated Study: There are intact wall motion and wall thickening without hypokinetic or dyskinetic segm ents. The ejection fraction is calculated at 70%. RISK CATEGORY: Low (<1% Annual Motality Rate) CONCLUSION: 1. Unremarkable and stable myocardial perfusion examination. No evidence to suggest ischemic myocard ial disease. Electronically signed by: Castro Pozo MD 05/02/2018 12:30 PM EST
--- NOTE | 2018-05-03 11:22 | ECG ---
Date Performed: 05/02/2018 Time Performed: 09:44:30 PTAGE: 68 years EKG: SINUS BRADYCARDIA BORDERLINE ECG He can change PREVIOUS TRACING : 05/02/2018 06.03 DOCTOR: Kyler Renae Interpretating Date/Time 05/03/2018 11:20:30
--- NOTE | 2018-05-03 11:24 | TR ---
Date Performed: 05/02/2018 Time Performed: 11:26:34 DOCTOR: Kyler Renae DRUG LIST: CLINICAL HISTORY: REASON FOR TEST: Angina REASON FOR ENDING: OBSERVATION: CONCLUSION: Lexiscan stress test was performed under standard four minute protocol. Radionuclide was injected one minute prior to ending the test. No electrocardiographic abormalities were present to suggest ischemia. Nuclear imaging and interpretation are pending. COMMENTS:
== END 2018-05-02 15:14 | disposition home or self-care (01) ==
LOC: NEPE 03:01 → NEDA 03:01 → NEPGCP 05:47
PROVIDERS: ADMIT Internal Medicine Cardiovascular Disease; ATTEND Internal Medicine Cardiovascular Disease